=== PATIENT | male | born 1990 | race Caucasian/White ===

== ENCOUNTER 2019-07-24 21:00 | Emergency (ER) | payer OTHER ==
[~2019-07-24] VITALS: Ht 190.5 cm; Wt 95.3 kg
[~2019-07-24 21:00] MED LIST: APAP500 PO; CELEXA20 MG PO; NORCO 5-325 TA1 EACH PO; VISTARIL 25 MG25 M1 PO
[2019-07-24 21:22] LABS: ABSOLUTE BASOPHILS 0.1 thou/uL (0.0-0.2); ABSOLUTE LYMPHOCYTES 2.8 thou/uL (0.8-5.3); ABSOLUTE MONOCYTES 1.3 thou/uL (0.0-1.2); ABSOLUTE NEUTROPHILS 8.5 thou/uL (1.6-8.1); BASOPHILS 0.7 %; EOSINOPHILS 0.4 %; HEMATOCRIT 44.7 % (42.0-52.0); HEMOGLOBIN 15.5 gm/dL (14.0-18.0); LYMPHOCYTES 21.8 %; MCH 31.8 pg (26.0-34.0); MCHC 34.7 g/dL (28.0-37.0); MCV 91.4 fL (80.0-100.0); MONOCYTES 10.5 %; MPV 8.6 fl. (7.2-11.1); NUCLEATED RBCS 0 /100WBC; PLATELET COUNT* 289 thou/uL (150-400); POLYS 66.6 %; RBC 4.89 mil/uL (4.50-6.00); RDW-CV 13.1 % (10.5-14.5); WBC 12.7 thou/uL (4.0-11.0)
[2019-07-24 21:27] LABS: CALCIUM 9.1 mg/dL (8.5-10.1); CREATININE 1.1 mg/dL (0.6-1.3); POTASSIUM 3.6 mmol/L (3.5-5.1)
[2019-07-24 21:27] LABS: URINE BILIRUBIN NEGATIVE (Negative); URINE BLOOD NEGATIVE (Negative); URINE CLARITY CLEAR; URINE COLOR YELLOW; URINE GLUCOSE-RANDOM NEGATIVE (Negative); URINE KETONES NEGATIVE (Negative); URINE LEUKOCYTES-REFLEX NEGATIVE (Negative); URINE NITRITE-REFLEX NEGATIVE (Negative); URINE PROTEIN NEGATIVE (Negative); URINE SPECIFIC GRAVITY 1.015 (1.005-1.030); URINE UROBILINOGEN 0.2 E.U./dl (0.2-1.0)
[2019-07-24 21:31] LABS: TOTAL PROTEIN 7.8 g/dL (6.4-8.2)
[2019-07-24] MEDS ORDERED: PROZAC20 M1 PO (21:35)
[2019-07-24 21:37] LABS: AMP/METHAMP POSITIVE (Negative); BARBITURATES Negative (Negative); BENZODIAZEPINES Negative (Negative); COCAINE Negative (Negative); METHADONE Negative (Negative); OPIATES Negative (Negative); PCP Negative (Negative); THC POSITIVE (Negative)
[2019-07-24 21:40] LABS: ACETAMINOPHEN < 2 ug/mL (10-30); ALCOHOL < 10 mg/dL (<10); SALICYLATE 3.3 mg/dL (2.8-20.0)
[2019-07-25 15:29] VITALS: BP 109/66
== END 2019-07-25 15:32 | disposition short-term general hospital (02) ==
LOC: M.ERS 21:00
PROVIDERS: Family Medicine
DX: R45.851 Suicidal ideations (principal); F41.9 Anxiety disorder, unspecified; F17.210 Nicotine dependence, cigarettes, uncomplicated

== ENCOUNTER 2019-12-03 17:38 | Emergency (ER) | payer OTHER ==
[~2019-12-03] VITALS: Ht 182.9 cm; Wt 81.7 kg
[~2019-12-03 17:38] MED LIST changes: +PROZAC20 M1 PO
[2019-12-03 18:13] LABS: URINE CLARITY CLEAR; URINE COLOR ORANGE
[2019-12-03 18:16] LABS: URINE SPECIFIC GRAVITY 1.023 (1.005-1.030)
[2019-12-03 18:20] LABS: CALCIUM OXALATE 0-3 Few /LPF (None Seen); URINE RBC 0-2 Rare /HPF (0-2)
[2019-12-03 18:21] LABS: CASTS None Seen /LPF (None Seen); MUCUS None Seen strn/LPF (None Seen); SQUAMOUS NONE SEEN /LPF (0-3); URINE WBC-REFLEX None Seen /HPF (0-5)
[2019-12-03 18:56] LABS: ABSOLUTE LYMPHOCYTES 1.6 thou/uL (0.8-5.3); ABSOLUTE MONOCYTES 0.6 thou/uL (0.0-1.2); ABSOLUTE NEUTROPHILS 5.1 thou/uL (1.6-8.1); BASOPHILS 0.5 %; EOSINOPHILS 0.4 %; HEMATOCRIT 45.6 % (42.0-52.0); HEMOGLOBIN 15.9 gm/dL (14.0-18.0); LYMPHOCYTES 21.5 %; MCHC 34.9 g/dL (28.0-37.0); MCV 91.8 fL (80.0-100.0); MONOCYTES 7.8 %; MPV 7.8 fl. (7.2-11.1); NUCLEATED RBCS 0 /100WBC; PLATELET COUNT* 287 thou/uL (150-400); POLYS 69.8 %; RBC 4.97 mil/uL (4.50-6.00); RDW-CV 13.3 % (10.5-14.5); WBC 7.3 thou/uL (4.0-11.0)
[2019-12-03 19:03] LABS: CALCIUM 9.5 mg/dL (8.5-10.1); CREATININE 1.3 mg/dL (0.6-1.3)
[2019-12-03 19:07] LABS: ALBUMIN 4.3 g/dL (3.4-5.0); TOTAL BILIRUBIN 0.4 mg/dL (<0.1-1.0); TOTAL PROTEIN 7.3 g/dL (6.4-8.2)
[2019-12-03] MEDS ORDERED: IBUPROFEN 800800 M1 PO (21:00)
[2019-12-03] MEDS ORDERED: DOXYCYCLINE 10100 MG PO (21:00)
[2019-12-03] MEDS ORDERED: TRAMADOL 50 MG50 MG PO (21:00)
[2019-12-03 21:31] VITALS: BP 120/86
== END 2019-12-03 21:31 | disposition home or self-care (01) ==
LOC: M.ERS 17:38
PROVIDERS: Nurse Practitioner Family
DX: N48.22 Cellulitis of corpus cavernosum and penis (principal); R10.31 Right lower quadrant pain; R30.9 Painful micturition, unspecified; F17.210 Nicotine dependence, cigarettes, uncomplicated; Z79.899 Other long term (current) drug therapy

== ENCOUNTER 2020-01-11 16:57 | Emergency (ER) | payer OTHER ==
[~2020-01-11] VITALS: Ht 190.5 cm; Wt 90.7 kg
[~2020-01-11 16:57] MED LIST changes: +DOXYCYCLINE 10100 MG PO; +IBUPROFEN 800800 M1 PO; +TRAMADOL 50 MG50 MG PO
[2020-01-11] MEDS ORDERED: NEURONTIN 300M300 M2 PO (17:05)
[2020-01-11] MEDS ORDERED: DOXYCYCLINE 10100 MG PO (19:16)
[2020-01-11] MEDS ORDERED: FLEXERIL PO (19:16)
[2020-01-11 19:54] VITALS: BP 130/70
== END 2020-01-11 19:55 | disposition home or self-care (01) ==
LOC: M.ERS 16:57
DX: S39.012A Strain of muscle, fascia and tendon of lower back, initial encounter (principal); S29.012A Strain of muscle and tendon of back wall of thorax, initial encounter; S60.021A Contusion of right index finger without damage to nail, initial encounter; S90.512A Abrasion, left ankle, initial encounter; L08.9 Local infection of the skin and subcutaneous tissue, unspecified; L03.011 Cellulitis of right finger; F17.210 Nicotine dependence, cigarettes, uncomplicated; W22.8XXA Striking against or struck by other objects, initial encounter; Y93.89 Activity, other specified; Y92.89 Other specified places as the place of occurrence of the external cause; Y99.8 Other external cause status

== ENCOUNTER 2020-02-05 20:18 | Emergency (ER) | payer OTHER ==
[~2020-02-05] VITALS: Ht 198.1 cm; Wt 90.7 kg
[~2020-02-05 20:18] MED LIST changes: +FLEXERIL PO; +NEURONTIN 300M300 M2 PO
[2020-02-05 21:50] LABS: ABSOLUTE EOSINOPHILS 0.1 thou/uL (0.0-0.7); ABSOLUTE MONOCYTES 0.7 thou/uL (0.0-1.2); ABSOLUTE NEUTROPHILS 4.5 thou/uL (1.6-8.1); BASOPHILS 0.3 %; EOSINOPHILS 1.1 %; HEMOGLOBIN 13.8 gm/dL (14.0-18.0); LYMPHOCYTES 27.4 %; MCH 31.1 pg (26.0-34.0); MCHC 33.7 g/dL (28.0-37.0); MCV 92.5 fL (80.0-100.0); MONOCYTES 9.8 %; MPV 7.6 fl. (7.2-11.1); NUCLEATED RBCS 0 /100WBC; PLATELET COUNT* 252 thou/uL (150-400); POLYS 61.4 %; RBC 4.43 mil/uL (4.50-6.00); RDW-CV 13.3 % (10.5-14.5); WBC 7.3 thou/uL (4.0-11.0)
[2020-02-05 21:59] LABS: URINE BILIRUBIN NEGATIVE (Negative); URINE BLOOD NEGATIVE (Negative); URINE CLARITY SL CLOUDY; URINE COLOR YELLOW; URINE GLUCOSE-RANDOM NEGATIVE (Negative); URINE KETONES NEGATIVE (Negative); URINE LEUKOCYTES-REFLEX NEGATIVE (Negative); URINE NITRITE-REFLEX NEGATIVE (Negative); URINE PROTEIN NEGATIVE (Negative); URINE UROBILINOGEN 0.2 E.U./dl (0.2-1.0)
[2020-02-05 22:02] LABS: CALCIUM 8.3 mg/dL (8.5-10.1); POTASSIUM 3.3 mmol/L (3.5-5.1)
[2020-02-05 22:05] LABS: CASTS None Seen /LPF (None Seen); MUCUS None Seen strn/LPF (None Seen); SQUAMOUS NONE SEEN /LPF (0-3)
[2020-02-05 22:06] LABS: AMORPHOUS URATES Many /LPF (None Seen); BACTERIA-REFLEX None Seen /HPF (None Seen); URINE RBC None Seen /HPF (0-2); URINE WBC-REFLEX 0-5 Rare /HPF (0-5)
[2020-02-05 22:13] LABS: ALBUMIN 3.4 g/dL (3.4-5.0); TOTAL BILIRUBIN 0.5 mg/dL (<0.1-1.0); TOTAL PROTEIN 6.3 g/dL (6.4-8.2)
[2020-02-05 22:15] LABS: AMP/METHAMP POSITIVE (Negative); BARBITURATES Negative (Negative); BENZODIAZEPINES Negative (Negative); COCAINE Negative (Negative); METHADONE Negative (Negative); OPIATES Negative (Negative); PCP Negative (Negative); THC POSITIVE (Negative)
[2020-02-05] MEDS ORDERED: KEFLEX500 M1 PO (23:44)
[2020-02-05 23:52] VITALS: BP 128/80
--- NOTE | 2020-02-06 18:00 | EKG ---
[place] [address] ELECTROCARDIOGRAM REPORT Name: ROSE ARTHUR Room: [facility]#: [id number] Admission: 02/05/20 Attend Phys: Discharge: 02/05/20 Date of : 88 Date of Service: 02/05/202144 Report #: [id number] THIS REPORT FOR: //name// [facility] ED Test Date: 2020-02-05 Test Time: 21:45:00 Pat Name: ROSE ARTHUR Department: Room: Gender: [employer] Operator: : 1990 Requested By: Mary Almonte Order Number: [id number] MD: Moises Carr Measurements Intervals [place] Rate: 87 P: 67 SC: 132 QRS: 88 QRSD: 104 T: 54 QT: 370 QTc: 445 Interpretive Statements Sinus rhythm Baseline wander in lead(s) V1,V3,V6 No previous ECG available for comparison Electronically Signed On 02-06-2020 18:00:38 SURGICAL TECHNOLOGIST by Moises Carr [email or web address] <ELECTRONICALLY SIGNED> By: Moises Carr MD, [facility] 02/06/20 1800 2145 [id number] Moises Carr MD, [facility] /EPI
== END 2020-02-05 23:52 | disposition home or self-care (01) ==
LOC: M.ERS 20:18
PROVIDERS: Personal Emergency Response Attendant
DX: L03.116 Cellulitis of left lower limb (principal); R60.0 Localized edema; Z20.828 Contact with and (suspected) exposure to other viral communicable diseases; F15.90 Other stimulant use, unspecified, uncomplicated; F17.210 Nicotine dependence, cigarettes, uncomplicated; Z79.899 Other long term (current) drug therapy

== ENCOUNTER 2020-03-09 15:06 | Emergency (ER) | payer OTHER ==
[~2020-03-09] VITALS: Ht 190.5 cm; Wt 90.7 kg
[~2020-03-09 15:06] MED LIST changes: +KEFLEX500 M1 PO
[2020-03-09] MEDS ORDERED: BACTRIM DS TAB1 EACH PO (15:25)
[2020-03-09] MEDS ORDERED: KEFLEX500 M1 PO (15:25)
[2020-03-09 15:29] VITALS: BP 147/95
== END 2020-03-09 15:30 | disposition home or self-care (01) ==
LOC: M.ERS 15:06
DX: L03.115 Cellulitis of right lower limb (principal); L03.116 Cellulitis of left lower limb; F17.210 Nicotine dependence, cigarettes, uncomplicated; Z79.899 Other long term (current) drug therapy